=== PATIENT | male | born 1985 | race Caucasian/White ===

== ENCOUNTER → 2019-08-22 10:29 | Outpatient (CLI) | payer OTHER, SELFPAY ==
--- NOTE | 2019-08-22 | DI.MRI.S_ITS ---
PROCEDURE: MR ANKLE LT WO CON INDICATIONS: Left ankle pain TECHNIQUE: Noncontrast sagittal T1 spin echo and T2 fast spin echo with fat saturation, axial proton density fast spin echo and T2 fast spin echo with fat saturation, coronal T1 spin echo and T2 fast spin echo with fat saturation through the ankle/hindfoot. COMPARISON: None. FINDINGS: Image quality: Diagnostic. Bones and joints: No acute fracture, dislocation, or suspicious osseous lesion is identified involving the osseous structures of the midfoot or hindfoot. However, there is mild marrow edema evident at the tip of the medial malleolus and along the periphery of the lateral malleolus. There may also be subtle marrow edema along the medial border of the talus. 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 The ankle mortise alignment is within normal limits. No osteochondral defects are evident involving the tibial plafond toward the talar dome. There is a small tibiotalar joint effusion. Medial structures: The deltoid ligament is edematous, but intact. The spring ligament is intact and unremarkable. The tibialis posterior tendon is within normal limits with the exception of a small amount of fluid contained within its distal tendon sheath. The flexor hallucis longus and flexor digitorum longus tendons are intact and unremarkable. The posterior tibial nerve through the tarsal tunnel is within normal limits without extrinsic mass effect appreciated. Lateral structures: The anterior and posterior distal tibiofibular ligaments appear to be grossly intact. A normal anterior talofibular ligament is not evident. There is heterogeneity and thickening of the soft tissues at the expected site of the ATFL, which is felt to be chronically torn. The calcaneofibular ligament is not clearly seen. The posterior talofibular ligament appears to be intact. There is prominent flattening of the peroneus brevis tendon when the posterior margin of the lateral malleolus with an associated short segment longitudinal split tear extending from just above the level of the tip of the lateral malleolus 2 approximately the mid to distal calcaneus. There is mild increased signal and thickening involving the peroneus longus tendon. Incidental note is made of an intact peroneus quartus muscle and tendon. Anterior structures: The tibialis anterior, extensor hallucis longus, and extensor digitorum longus tendons appear intact. Posterior and plantar structures: Achilles tendon is intact. Slight increased signal in the distal aspect of the Achilles tendon is of doubtful significance, but may represent minimal tendinopathy. There is no significant tearing. Medial and lateral bands of the plantar fascia are of normal thickness. IMPRESSION: 1. Deltoid ligaments. 2. Mild tenosynovitis involving the distal tibialis posterior tendon. 3. Probable full-thickness anterior talofibular and calcaneofibular ligament tears. 4. Short segment longitudinal split tearing corresponding tendinopathy of the peroneus brevis tendon. 5. Mild peroneus longus tendinopathy. 6. Small tibiotalar joint effusion. 7. Possible bone contusions involving the medial malleolus, lateral malleolus, and medial border of the talus versus reactive marrow edema from ligamentous injuries. No fractures. Dictated by: Jasen Rivers M.D. on 08/22/2019 at 16:42 Approved by: Jasen Rivers M.D. on 08/22/2019 at 16:47
--- NOTE | 2019-08-22 | DI.MRI.S_ITS ---
PROCEDURE: MRFOOT LT WO CON INDICATIONS: Left foot pain TECHNIQUE: Noncontrast sagittal T1 spin echo and T2 fast spin echo with fat saturation, long-axis T1 spin echo and T2 fast spin echo with fat saturation, short-axis T1 spin echo and T2 fast spin echo with fat saturation through the forefoot. COMPARISON: [facility], MR, MR ANKLE LT WO CON, 08/22/2019, 11:17. FINDINGS: Image quality: Diagnostic. Bones and joints: No acute fracture, dislocation, or suspicious osseous lesion of the midfoot or forefoot bones are evident. There may be early degenerative changes of the 1st metatarsal phalangeal joint. No hallux valgus is evident. Bony alignment appears to be within normal limits. No significant joint effusions are identified. Soft tissues: No soft tissue masses or drainable fluid collections are identified. There is nonspecific soft tissue edema along the plantar aspect of the 5th metatarsal phalangeal joint. The associated flexor tendon at this location appears to be intact. Otherwise, the remainder of the extensor and flexor tendons of the midfoot and forefoot are within normal limits. No significant fluid is seen within the intermetatarsal bursae. The Lisfranc ligament is intact. IMPRESSION: 1. Nonspecific soft tissue edema along the plantar aspect of the 5th metatarsal phalangeal joint may be related to recent soft tissue injury. Focal infection is difficult to exclude. 2. No evidence to suggest osteomyelitis. 3. Possible early degenerative changes of the 1st metatarsophalangeal joint. 4. No fractures. Dictated by: Jasen Rivers M.D. on 08/22/2019 at 16:39 Approved by: Jasen Rivers M.D. on 08/22/2019 at 16:42
== END ==
PROVIDERS: Visit Provider Student in an Organized Health Care Education/Training Program
DX: M25.572 Pain in left ankle and joints of left foot (principal); M79.89 Other specified soft tissue disorders; M65.872 Other synovitis and tenosynovitis, left ankle and foot; M25.472 Effusion, left ankle
CPT/HCPCS: 73718; 73721